=== PATIENT | male | born 1995 | race Two or more races ===

== ENCOUNTER 2017-05-01 21:01 | Emergency (ER) | payer SELFPAY ==
[2017-05-01 21:05] VITALS: BP 124/82; BMI 24.1
--- NOTE | 2017-05-02 11:52 | DR.GENAD ---
HPI - PCP Primary Care Physician: MENDY - Complaint/Symptoms Chief Complaint:: STEPPED ON NAIL TODAY AROUND 4PM, DENIES IT BEING SHIRIN. WANTS A TETANUS SHOT. - Source History Provided: Patient, Other - Mode of Arrival Mode of Arrival: Ambulatory - Timing Onset of Chief Complaint: 05/01/17 PMH - PMH Past Medical History: No Past Surgical History: No - Family History History of Family Medical Conditions: No - Social History Does patient currently use any type of tobacco product: No Have you used tobacco products in the last 12 months: No Type of Tobacco Use: None Does any household member use tobacco: No Alcohol Use: None Do you use any recreational Drugs:: No Lives With: Family, Friend Lives Where: Home - infectious screening Have you traveled outside the country in the last 6 months?: No Isolation: Standard PE - Vital Signs Vitals: Temperature 98.2 F Pulse Rate 66 Respiratory Rate 16 Blood Pressure 124/82 O2 Sat by Pulse Oximetry 99 - Discharge Plan Disposition: [facility] After Triage Condition: Stable - Follow ups/Referrals Follow ups/Referrals: NFD,None [Primary Care Provider] - 3 days - Instructions
== END 2017-05-01 23:40 | disposition left against medical advice (07) ==
LOC: ER 21:11
DX: S91.342A Puncture wound with foreign body, left foot, initial encounter (principal); Y28.8XXA Contact with other sharp object, undetermined intent, initial encounter
CPT/HCPCS: 99281